=== PATIENT | female | born 1950 | race Caucasian/White ===

== ENCOUNTER 2016-07-27 10:05 | Day surgery (SDC) | payer OTHER ==
[~2016-07-27] VITALS: Ht 165.1 cm; Wt 70.0 kg
[~2016-07-27 10:05] MED LIST: ASPI-351 PO; LOSA50TA37 PO; Lactated Ringer's 1,000 ML IV ONE; OMEP20TA86 PO; SMV40T PO
[2016-07-27] MEDS ORDERED: fentaNYL-PF 50 mCg/mL 2 mL Inj ONE (10:06)
[2016-07-27] MEDS ORDERED: Propofol 10,000 mCg/mL 20 mL Inj ONE (10:06)
[2016-07-27 10:37] VITALS: BP 169/99; PULSE 70; RESP 17; O2SAT 97
[2016-07-27] MEDS ORDERED: NITR0.4T6 SL (10:41)
[2016-07-27] MEDS ORDERED: LIP40 PO (10:41)
[2016-07-27] MEDS ORDERED: LACT1CAP37 PO (10:41)
--- NOTE | 2016-07-27 11:52 | PCM.HPANE ---
Patient Data Date of Service: Jul 27, 2016 ([id number]) Surgeon Admitting Provider: Attending Provider:Mannie Cooper MD Primary Care Physician:Shaun Jeffries MD Other Provider:Velma Luu Anesthesia Reason for Visit Adenomatous Polyp Of Colon, And Pain Ht/WT & BMI Height (Feet): 5 Height (Inches): 5 Weight (Kilograms): 70 Body Mass Index 25.00 Allergies Uncoded Allergies: No Known Allergies (Allergy, Unknown, 08/19/04) NSAIDS (Adverse Reaction, Intermediate, GI DISTRESS, 08/19/04) Past Anesthesia History Anesthesia History: Denies:: Abnormal Airway, Anesthesia Reactions, Difficult Intubation, Malignant Hyperthermia Diabetes History Hx Diabetes?: No MRSA MRSA: No Medications Home Meds Incl Beta Lawrence: No Reported Medications Lactobacillus Rhamnosus GG (Culturelle)1 Each Capsule1 Each PO 07/27/16 Nitroglycerin SL 0.4 Mg Tab.subl0.4 Mg SL 07/27/16 Atorvastatin (Lipitor)40 Mg Ruvzwt76 Mg PO DAILY Ref 0 07/27/16 Losartan Potassium 50 Mg Bxnsrw32 Mg PO DAILY 07/26/16 Omeprazole-Expunged Drug, Do Not Renew! 20 Mg Tablet.dr20 Mg PO DAILY 04/12/11 Aspirin-Expunged Drug, Do Not Renew! 325 Mg Zeqizx77 Mg PO DAILY 08/29/10 Discontinued Reported Medications Simvastatin-Expunged Drug, Choose New Med! 40 Mg Wxadfv75 Mg PO DAILY 08/29/10 Spironolactone-Expunged Drug, Do Not Renew! 25 Mg Zgjzch03.5 Mg PO DAILY 04/12/11 Nitroglycerin-Expunged Drug, Do Not Renew! (Nitroglycerin SL-Expunged Drug, Do Not Renew!)0.4 Mg Tab.subl Prn 11/04/10 Verapamil-Expunged Drug, Do Not Renew! 240 Mg Tablet.er240 Mg PO DAILY 11/04/10 [nitropatch 0.4mg/hr] No Conflict Check Td Daily 11/02/10 Nortriptyline-Expunged Drug, Do Not Renew! 10 Mg Pcqtezk86 Mg PO 11/02/10 Thiamine-Expunged Drug, Do Not Renew! (Vitamin B1-Expunged Drug, Do Not Renew!) 100 Mg Bzf476 Mg PO DAILY 08/29/10 Folic Acid-Expunged Drug, Do Not Renew! 1 Mg Tablet1 Mg PO DAILY 08/29/10 History History of ENT Problems?: No HEENT History: Positive for:: Dysphagia (2ND TO LINGUAL TONSILS) Denies:: Abnormal Airway Cataracts Difficult Intubation Hearing Problem Sinus Problem Denture Type: None Teeth Condition: Missing Teeth Hx of Heart Problems?: Yes Cardiovascular History: Positive for:: Chest Pain Hypertension Denies:: AICD Cardiac Surgery Congestive Heart Failure Edema Heart Murmur Irregular Heartbeat Pacemaker Thrombophlebitis Valvular Heart Disease Hx of Respiratory Problem?: No Respiratory History: Denies:: Asthma COPD Chest Surgery Cough Dyspnea Emphysema Hemoptysis Pneumonia Tuberculosis Hx Neurologic Problems?: No Neurological History: Denies:: Alzheimer's Disease CVA Dementia Dizziness Headaches Parkinson's Disease Seizures Hx of GI Problems?: No Hx of Problems?: No Genitourinary History: Positive for:: Urinary Tract Infection (right now, getting better and on abx) Denies:: HX of Hemodialysis Kidney Stones HX of Peritoneal Dialysis: No Female Hx: Denies:: Currently Endometriosis Pelvic Inflammatory Problems with Breasts? Hx Musculoskeletal Problems?: No Musculoskeletal History: Positive for:: Back Injury (LOWER BACK AND LEFT HIP) Denies:: Fibromyalgia Joint Replacement Musculoskeletal Trauma Hx of Psycho/Social Problems?: No Psycho Social History: Denies:: Bipolar Disorder Hx Depression Suicide Attempt Hx Surgeries?: Yes (thumb. tonsillectomy, lasix) Hx Any Other Health Problems?: Yes Other History: Positive for:: Hospitalization Denies:: Cancer Endocrine Disease Thyroid Disease History Blood Transfusions: Denies:: Blood Transfuse Reaction Blood Transfusions Hx Diabetes: No Hx Alcohol Use: Yes (WINE 1-3 NIGHTLY)Hx Substance Use: No Stop/Bang Treated for Sleep Apnea?: No Do You Have a CPAP Machine?: No S-Snoring: Do You Snore Loudly: Yes T-Tired: feel tired, fatigued: No O-Obsered: Observed not breath: No P-Blood Pressure: treated: Yes B- Body Mass Index > 35 kg/m2: No A- Age over 50: Yes N- Neck Large Circumference: No G- Gender Male: No MANPREET Total Score: 3 MANPREET Risk Assessment: Low Risk, <3 Yes Risk Assessment Category Category 1A: Patient has history of documented sleep apnea, and HAS NOT received any narcotic, sedative or anesthesia administration during this stay. Category 1B: Patient has history of documented sleep apnea, and HAS received any narcotic , sedative or anesthesia administration during this stay Category 2: Patient has SUSPECTED Obstructive Sleep Apnea, and HAS received any narcotic , sedative or anesthesia administration during this stay. Category 3: Patient has SUSPECTED Obstructive Sleep Apnea and HAS NOT received narcotic, sedative or anesthesia administration during this stay. Category 4: Outpatient in Procedural Areas with known sleep apnea or who screen positive for High Risk via the STOP/BANG questionnaire. Exam Exam Vital Signs Vital Signs Date Time Temp Pulse Resp B/P Pulse Ox O2 Delivery O2 Flow Rate FiO2 07/27/16 10:37 70 17 169/99 97 Room Air General Appearance: Alert, Oriented X3 HEENT/AIRWAY: MP 1 Lungs: Clear to Auscultation Heart: Exam Unremarkable Meds/Labs/Diagnostics Admission Meds Current Medications Lactated Ringer's (Lr) 1,000 ml @ 10 mls/hr Q24H ONCE IV Last administered on 07/27/16t 11:19; Start 07/27/16 at 06:00; Stop 07/28/16 at 05:59 Plan Impression Patient chart reviewed, patient interviewed and anesthestic plan with risks, benefits, and alternatives discussed, and informed consent obtained. NPO per Anesth. Guidelines: Yes ASA Physical Status: ASA2 Mod Systemic Disease Anesthetic Plan: GA Bene/Risks/Altern/Consents: Yes HP Complete Prior to Induction: Yes Shiv Davis MD Jul 27, 2016 11:52
--- NOTE | 2016-07-27 12:43 | PCM.ENDEGD ---
EGD Date of Service: Jul 27, 2016 Physician Mannie Cooper MD Pre Procedure Diagnosis: Reflux Post Procedure Dx & Findings: Gastritis duodenal irritation and edema Procedure Esophagogastroduodenoscopy PROCEDURE IN DETAIL: After proper sedation, Olympus video endoscope was inserted into patient's mouth and esophagus was successfully intubated. Scope introduced esophagus. Esophagus showed normal shiny whitish mucosa consistent with squamous cell component. Z line was intact at 40 cm from the incisors. Scope further advanced to the stomach. Stomach showed normal shiny mucosa with normal appearing rugae folds without any ulcer mass erosion. However in the antrum, some redness and atrophy noted. This is consistent with gastritis and biopsies obtained. Cardia fundus body antrum pylorus were all visualized. Retroflexion was done. Stomach was easily inflated and deflatable using air. Scope further events to the distal duodenum. Duodenal bulb showed some prominent folds and small less than 1mm bump which was reddish. Biopsies were done on both sides. Otherwise the rest of the Duodenum revealed normal villous structures with normal appearing folds without any mass ulcer erosion. Impression Gastritis Duodenal irritations Recommendation Await biopsies Presedation Assessment Risks and Benefits Informed consent was obtained from the patient after all risks and benefits including but not limited to drug reaction, infection, pain, bleeding, perforation, as well as alternatives were discussed. Patient monitoring Continuous pulse oximetry, cardiac monitoring, blood pressure monitoring, IV access, and oxygen at 2L per nasal cannula. Complications There were no periprocedural complications identified. Post Procedure Plan Post Procedure Recommendations 1. Restrict activities today. 2. Resume normal activities in the morning. 3. Resume medications. 4. GERD behavioral modification: - Avoid fatty, acidic, spicy, large meals - Do not lie down after meals - Do not eat or drink anything for at least 2 1/2 hours before going to bed at night - Discontinue tobacco and alcohol - Decrease or avoid caffeine - Avoid chocolate and mints - Decrease weight - Avoid aspirin and non steroidal anti-inflammatory agents (NSAID) such as Aleve, Advil, Mobic, Naproxen, Ibuprofen, etc 5. Add proton pump inhibitor. Take 30 minutes before 1st meal of the day. 6. Patient informed of normal post procedure side effects as bloating, drowsiness, blood streaking in the stool 7. If gastric biopsy reveal H.pylori, continue with appropriate treatment 8. If small bowel biopsy reveals celiac, continue with appropriate treatment 9. Please don't hesitate to call me with any questions Mannie Cooper MD Jul 27, 2016 12:43
--- NOTE | 2016-07-27 12:46 | PCM.ENDCOL ---
Colonoscopy Date of Service: Jul 27, 2016 Physician Mannie Cooper MD Pre Procedure Diagnosis: History of adenomatous polyps Post Procedure Dx & Findings: Polyp hemorrhoids diverticuli Procedure Colonoscopy PROCEDURE IN DETAIL: Prep adequate Withdrawal time 15 minutes After unremarkable rectal examination the Olympus video colonoscope was inserted patient's anal canal and was advanced to cecum. Landmarks were identified including the ileocecal valve and appendiceal orifice. Scope was withdrawn systematically. Visualized colonic mucosa showed healthy shiny mucosa with normal healthy-appearing vasculature. In the ascending colon, there was a 1 mm polyp which was removed completely using cold forceps. Despite taking this cold forcep, the polyp was lost. In the descending colon, there was a 2 mm polyp which was removed completely using cold snare. This polyp too was lost. In the rectum, there was a 1 mm polyp which was removed completely using cold forcep. Multiple diverticula mostly in the sigmoid colon. However patient had isolated diverticuli all the way into the ascending colon. In the rectum retroflexion was done which showed hemorrhoids. Anal canal was inspected carefully on the way out and hemorrhoids noted. Impression Polyps 3 status post complete removal. 2 were lost. Diverticuli Personal history of polyps Hemorrhoids Recommendation Repeat colonoscopy in 3 years Diverticula diet Presedation Assessment Risks and Benefits Informed consent was obtained from the patient after all risks and benefits including but not limited to drug reaction, infection, pain, bleeding, perforation, as well as alternatives were discussed. Patient monitoring Continuous pulse oximetry, cardiac monitoring, blood pressure monitoring, IV access, and oxygen at 2L per nasal cannula. Complications There were no periprocedural complications identified. Post Procedure Plan Post Procedure Recommendations 1. Restrict activities today. 2. Resume normal activities in the morning. 3. Resume medications. 4. Patient informed of normal post procedure side effects as bloating, drowsiness, blood streaking in the stool. 5. average risk CRCS. If colon polyps come back as: -Hyperplastic- can repeat colonoscopy in 10 years -Tubular adenoma- repeat colonoscopy in 5 years -Tubulovillous/villous adenoma- repeat colonoscopy in 3 years -If any dysplasia- return to clinic as soon as possible 6. Please don't hesitate to call me with any questions. Mannie Cooper MD Jul 27, 2016 12:46
--- NOTE | 2016-07-27 12:49 | PCM.ANEP1 ---
Post Anesthesia PACU Phase 1 Assessment Vital Signs 133/81, 36.3, 99, 65 Vital Signs Date Time Temp Pulse Resp B/P Pulse Ox O2 Delivery O2 Flow Rate FiO2 07/27/16 10:37 70 17 169/99 97 Room Air Anesthetic Administered: GA Level of Alertness: Awake, talking ROQUE's with Equal Strength: Yes Pain: No Nausea or Vomiting: No CV Function & Hydration Stable: Yes Airway Device: none Oxygen Delivery: Room Air Lungs: Clear to Auscultation Dermatome Level: Full Sensation Summary uneventful sedation PACU Phase 2 Assessment Complications: No Follow up Care: No Patient Instructions Provided: N/A Shiv Davis MD Jul 27, 2016 12:49
[2016-07-27 12:50] VITALS: BP 133/81; PULSE 67; RESP 16; O2SAT 97
[2016-07-27 13:00] VITALS: BP 138/81; PULSE 60; RESP 16; O2SAT 98
--- NOTE | 2016-07-30 17:54 | PATH ---
SURGICAL PATHOLOGY Attending Physician:Mannie Cooper M.D. CASE STATUS: Signed Out PATIENT NAME: TIKI CANDELARIA PID: [id number] : 1950 DATE COLLECTED:07/27/2016 19:52 SPECIMEN: 1: Gastric, Biopsy 2: Duodenum, Biopsy 3: Rectum, Biopsy CLINICAL HISTORY: 1). GASTRIC BIOPSY 2). DUODENAL NODULE BIOPSY 3). RECTAL POLYP FINAL DIAGNOSIS: 1. Gastric Biopsy: Portion of gastric antral mucosa with mild chronic gastritis. No definite H. pylori organisms identified by H&E stain. Immunohistochemistry studies pending; results will be reported as an addendum. Negative for intestinal metaplasia, dysplasia and malignancy. 2. Duodenal Nodule, Biopsy: Duodenal mucosa with prominent Jose's glands, suggestive of Jose's gland hyperplasia, in the appropriate clinical context. Negative for active inflammation, granulomas, dysplasia and malignancy. 3. Rectal Polyp, Biopsy: Hyperplastic polyp. ICD10: K63.5 GROSS DESCRIPTION: The specimen is received in three formalin filled containers labeled with the patient's name. 1). The specimen is sublabeled "gastric" and consists of a 0.3 x 0.3 x 0.2 CM portion of tissue which is entirely submitted in cassette 1A. 2). The specimen is sublabeled "duodenal nodule" are portions of tissue which aggregate to 0.3 x 0.3 x 0.2 CM. The specimen is entirely submitted in cassette 2A. 3). The specimen is sublabeled "rectal polyp" and consists of a 0.3 x 0.3 x 0.3 CM portion of tissue which is entirely submitted in cassettes 3A. 07/27/2016 [facility] ICD-9 CODES: CPT CODES: 1: 60824, 95137 2: 37042 3: 31121 PROCEDURE/ADDENDA: Addendum SPI Addendum Diagnosis {Not Entered} Addendum Comment IMMUNOHSTOCHEMISTRY RESULTS: 1. Gastric Biopsy: Negative for Helicobacter organisms by immunohistochemistry studies. Electronically Signed Out Tsering Garcia MD Electronically Signed Out Tsering Garcia MD [facility], [place] [address] Technical component performed at [facility], [facility] [address], [place], [address]
== END 2016-07-27 23:59 | disposition home or self-care (01) ==
LOC: END 10:05
PROVIDERS: ATTEND Internal Medicine
DX: K62.1 Rectal polyp (principal); K29.50 Unspecified chronic gastritis without bleeding; K21.9 Gastro-esophageal reflux disease without esophagitis; Z86.010 Personal history of colon polyps; K57.30 Diverticulosis of large intestine without perforation or abscess without bleeding; K64.9 Unspecified hemorrhoids
CPT/HCPCS: 43239; 45385; J2250; J3010; J7120